=== PATIENT | male | born 1930 | race Caucasian/White ===

== ENCOUNTER 2016-03-30 10:01 | Inpatient (IN) | payer MEDICARE, BC ==
[~2016-03-30 10:01] MED LIST: AMIODARONE HCL100 MG PO; ARICEPT10 M1 PO; CHILDREN'S ASPI81 M1 PO; COUMADIN 22.5 MG/TAB PO; COUMADIN PO; COUMADIN5 M1 PO; ESCITALOPRAM10 MG PO; FLOMAX 0.40.4 MG/CAP PO; FUROSEMIDE PO; KEPPRA750 M1 PO; NAMENDA XR28 MG PO; NORCO 325 MG-51 TAB PO; PEG 335017 GM/Dose PO; POTASSIUM CHLO10 ME6 PO
[2016-03-30 15:52] VITALS: BP 110/59
[2016-03-30 18:46] VITALS: BP 117/65
[2016-03-31 06:32] VITALS: BP 154/83
[2016-03-31] MEDS ORDERED: LORTAB 5/3251 TAB PO (16:19)
[2016-03-31] MEDS ORDERED: VIAGRA100 M1 PO (16:22)
[2016-03-31] MEDS ORDERED: COUMADIN 3MG3 MG/TAB PO (16:23)
[2016-03-31] MEDS ORDERED: COUMADIN PO (16:24)
[2016-03-31 18:27] VITALS: BP 126/72
[2016-04-01 06:24] VITALS: BP 138/72
[2016-04-01 19:26] VITALS: BP 130/58
[2016-04-02 06:21] VITALS: BP 149/76
[2016-04-02 18:48] VITALS: BP 174/81
[2016-04-03 06:28] VITALS: BP 146/84
[2016-04-03 18:33] VITALS: BP 144/73
[2016-04-04 05:51] VITALS: BP 137/73
[2016-04-04 18:47] VITALS: BP 126/67
[2016-04-05 06:21] VITALS: BP 152/75
[2016-04-05 18:17] VITALS: BP 16/59
[2016-04-05 22:13] VITALS: BP 136/70
[2016-04-06 06:24] VITALS: BP 161/80
[2016-04-06 18:34] VITALS: BP 161/85
[2016-04-07 06:22] VITALS: BP 161/85
[2016-04-07 18:37] VITALS: BP 102/60
[2016-04-08 06:44] VITALS: BP 150/72
[2016-04-08 18:25] VITALS: BP 114/58
[2016-04-09 06:24] VITALS: BP 126/67
[2016-04-09 18:39] VITALS: BP 143/69
[2016-04-10 06:20] VITALS: BP 153/83
[2016-04-10 18:25] VITALS: BP 122/68
[2016-04-11 06:26] VITALS: BP 150/74
[2016-04-11 18:03] VITALS: BP 144/56
[2016-04-12 06:31] VITALS: BP 154/76
[2016-04-12 17:59] VITALS: BP 104/55
[2016-04-13 06:26] VITALS: BP 151/78
[2016-04-13 18:06] VITALS: BP 132/69
[2016-04-14 06:24] VITALS: BP 145/76
[2016-04-14 18:26] VITALS: BP 126/61
[2016-04-15 06:33] VITALS: BP 144/74
[2016-04-15 18:14] VITALS: BP 116/60
[2016-04-16 06:24] VITALS: BP 156/78
[2016-04-16 18:24] VITALS: BP 124/63
[2016-04-17 06:21] VITALS: BP 158/78
[2016-04-17 18:12] VITALS: BP 142/63
[2016-04-18 06:28] VITALS: BP 154/79
[2016-04-18 17:56] VITALS: BP 150/68
[2016-04-19 06:40] VITALS: BP 157/80
[2016-04-19 18:12] VITALS: BP 111/59
[2016-04-20 06:24] VITALS: BP 137/71
[2016-04-20 18:43] VITALS: BP 124/55
[2016-04-21 06:24] VITALS: BP 145/73
[2016-04-21 18:20] VITALS: BP 111/54
[2016-04-22 06:42] VITALS: BP 152/81
[2016-04-22 18:23] VITALS: BP 120/64
[2016-04-23 06:33] VITALS: BP 172/80
[2016-04-23 18:08] VITALS: BP 125/63
[2016-04-24 06:23] VITALS: BP 161/75
[2016-04-24 18:12] VITALS: BP 135/63
[2016-04-25 06:24] VITALS: BP 152/77
[2016-04-25 18:10] VITALS: BP 139/67
[2016-04-26 06:20] VITALS: BP 154/78
[2016-04-26 18:04] VITALS: BP 121/64
[2016-04-27 06:55] VITALS: BP 175/87
[2016-04-27 18:26] VITALS: BP 136/62
[2016-04-28 06:30] VITALS: BP 151/82
[2016-04-28 18:44] VITALS: BP 113/54
[2016-04-29 06:32] VITALS: BP 159/76
[2016-04-29 18:29] VITALS: BP 120/61
[2016-04-30 06:25] VITALS: BP 149/75
[2016-04-30 18:25] VITALS: BP 123/56
[2016-05-01 05:58] VITALS: BP 146/76
[2016-05-01 06:21] VITALS: BP 156/81
[2016-05-01 18:43] VITALS: BP 115/63
[2016-05-02 06:20] VITALS: BP 166/83
[2016-05-02 18:00] VITALS: BP 147/63
[2016-05-03 06:19] VITALS: BP 158/83
[2016-05-03 19:06] VITALS: BP 152/76
[2016-05-04 06:23] VITALS: BP 169/84
[2016-05-04 18:08] VITALS: BP 127/63
[2016-05-05 06:29] VITALS: BP 170/82
[2016-05-05 18:16] VITALS: BP 126/68
[2016-05-06 06:17] VITALS: BP 157/82
[2016-05-06 18:23] VITALS: BP 150/67
[2016-05-07 06:23] VITALS: BP 162/82
[2016-05-07 18:02] VITALS: BP 125/61
[2016-05-08 06:21] VITALS: BP 152/80
[2016-05-08 18:22] VITALS: BP 160/82
[2016-05-09 06:33] VITALS: BP 153/82
[2016-05-09 18:08] VITALS: BP 114/60
[2016-05-10 06:21] VITALS: BP 161/88
[2016-05-10 18:26] VITALS: BP 125/65
[2016-05-11 06:24] VITALS: BP 180/95
[2016-05-11 18:28] VITALS: BP 123/68
[2016-05-12 06:28] VITALS: BP 149/87
[2016-05-12 07:53] VITALS: BP 147/83
[2016-05-12 18:26] VITALS: BP 126/59
[2016-05-13 06:37] VITALS: BP 155/86
[2016-05-13 18:37] VITALS: BP 127/66
[2016-05-14 06:30] VITALS: BP 167/86
[2016-05-14 18:32] VITALS: BP 157/75
[2016-05-15 06:23] VITALS: BP 147/82
[2016-05-15 18:08] VITALS: BP 111/66
[2016-05-16 06:20] VITALS: BP 160/81
[2016-05-16 18:06] VITALS: BP 125/59
[2016-05-17 06:20] VITALS: BP 140/73
[2016-05-17] MEDS ORDERED: TYLENOL 500MG500 MG PO (14:06)
[2016-05-17] MEDS ORDERED: KEPPRA750 M1 PO (14:07)
[2016-05-17] MEDS ORDERED: LEXAPRO 10MG10 MG PO (14:07)
[2016-05-17] MEDS ORDERED: ATIVAN0.5 MG PO (14:08)
[2016-05-17] MEDS ORDERED: LEVOXYL0.075 MG PO (14:09)
[2016-05-17] MEDS ORDERED: COUMADIN 22.5 MG/TAB PO (14:11)
[2016-05-17] MEDS ORDERED: COUMADIN PO (14:12)
[2016-05-17 18:17] VITALS: BP 163/93
[2016-05-18 06:22] VITALS: BP 150/84
[2016-05-18 18:01] VITALS: BP 158/75
[2016-05-19 06:26] VITALS: BP 163/86
[2016-05-19 18:38] VITALS: BP 114/60
[2016-05-20 06:23] VITALS: BP 147/80
[2016-05-20 18:27] VITALS: BP 130/68
[2016-05-21 06:32] VITALS: BP 168/87
[2016-05-21 18:15] VITALS: BP 132/68
[2016-05-21 23:45] VITALS: BP 163/74
[2016-05-22 06:21] VITALS: BP 163/86
[2016-05-22 18:14] VITALS: BP 138/80
[2016-05-23 06:35] VITALS: BP 161/86
[2016-05-23 18:08] VITALS: BP 138/77
[2016-05-24 06:22] VITALS: BP 164/78
[2016-05-24 18:25] VITALS: BP 118/54
[2016-05-25 06:30] VITALS: BP 161/86
[2016-05-25 10:07] VITALS: BP 161/86
== END 2016-05-25 12:17 | DRG 560 ==
LOC: MED/SURG 10:01
PROVIDERS: ADMIT Physician Assistant
DX: S72.142D Displaced intertrochanteric fracture of left femur, subsequent encounter for closed fracture with routine healing (principal); F03.91 Unspecified dementia, unspecified severity, with behavioral disturbance; Z66 Do not resuscitate; Z96.643 Presence of artificial hip joint, bilateral; D64.9 Anemia, unspecified; E03.9 Hypothyroidism, unspecified; N28.9 Disorder of kidney and ureter, unspecified; I48.91 Unspecified atrial fibrillation; F32.9 Major depressive disorder, single episode, unspecified; R60.0 Localized edema; I25.10 Atherosclerotic heart disease of native coronary artery without angina pectoris; W19.XXXD Unspecified fall, subsequent encounter; I69.320 Aphasia following cerebral infarction; Z79.82 Long term (current) use of aspirin; Z79.01 Long term (current) use of anticoagulants; Z95.0 Presence of cardiac pacemaker; Z87.442 Personal history of urinary calculi
CPT/HCPCS: A6206; A6531

== ENCOUNTER → 2016-06-05 | Outpatient (CLI) | payer MEDICARE, BC ==
[~2016-06-05] MED LIST changes: +ASPIRIN 81M81 MG/TA2 PO; +ATIVAN0.5 MG PO; +COUMADIN 3MG3 MG/TAB PO; +COUMADIN 4MG4 MG/TAB PO; +LEVOXYL0.075 MG PO; +LEXAPRO 10MG10 MG PO; +LORTAB 5/3251 TAB PO; +MACROBID 100 M100 MG PO; +TYLENOL 500MG500 MG PO; +VIAGRA100 M1 PO
== END ==
LOC: LAB 10:35
DX: I48.2 Chronic atrial fibrillation (principal)

== ENCOUNTER 2016-06-15 18:22 | Emergency (ER) | payer MEDICARE, BC ==
[~2016-06-15 18:22] MED LIST changes: -ASPIRIN 81M81 MG/TA2 PO; -COUMADIN 4MG4 MG/TAB PO; -MACROBID 100 M100 MG PO
[2016-06-15] MEDS ORDERED: ASPIRIN 81M81 MG/TA2 PO (18:32)
[2016-06-15] MEDS ORDERED: COUMADIN 4MG4 MG/TAB PO ×2 (18:33)
[2016-06-15] MEDS ORDERED: COUMADIN 3MG3 MG/TAB PO (18:34)
[2016-06-15] MEDS ORDERED: MACROBID 100 M100 MG PO (22:27)
[2016-06-15 22:30] VITALS: BP 127/69
== END 2016-06-15 22:30 | disposition home or self-care (01) ==
LOC: ED 18:22
DX: N39.0 Urinary tract infection, site not specified (principal); E86.9 Volume depletion, unspecified; G40.909 Epilepsy, unspecified, not intractable, without status epilepticus
CPT/HCPCS: J0696; J7030

== ENCOUNTER 2017-06-26 14:46 | Emergency (ER) | payer MEDICARE, BC ==
[~2017-06-26] VITALS: Wt 92.9 kg
[~2017-06-26 14:46] MED LIST changes: +ASPIRIN 81M81 MG/TA2 PO; +COUMADIN 4MG4 MG/TAB PO; +MACROBID 100 M100 MG PO
[2017-06-26] MEDS ORDERED: COUMADIN 1MG1 MG/TAB PO (15:13)
[2017-06-26 15:43] LABS: HEMATOCRIT 34.1 % (42.0-52.0); HEMOGLOBIN 11.4 g/dL (13.5-18.0); MEAN CELL VOLUME 93 fl (78-100); MEAN CORPUSCULAR HEMOGLOBIN 31 pg (27-31); MEAN CORPUSCULAR HGB CONC 33 g/dL (33-37); MEAN PLATELET VOLUME 9.5 fl (7.4-10.4); PLATELET COUNT 192 K/mm3 (130-400); RED BLOOD COUNT 3.68 M/mm3 (4.20-5.60); RED CELL DISTRIBUTION WIDTH 13.7 % (11.5-14.5); WHITE BLOOD COUNT 6.9 K/mm3 (4.8-10.8)
[2017-06-26 15:57] LABS: ALBUMIN 3.1 g/dL (3.5-5.0); BUN/CREATININE RATIO 16.4 (6.0-26.0); CALCIUM 8.3 mg/dL (8.4-10.2); POTASSIUM 3.4 mmol/L (3.6-5.0); TOTAL BILIRUBIN 0.8 mg/dL (0.2-1.3); TOTAL PROTEIN 6.3 g/dL (6.3-8.2)
[2017-06-26 16:08] LABS: LYMPHOCYTE 20 % (20-51); MONOCYTE 8 % (3-10); NEUTROPHILS 61 % (42-75)
[2017-06-26 16:14] LABS: PROTHROMBIN TIME 39.4 SECONDS (9.0-12.0)
[2017-06-26] MEDS ORDERED: BACTRIM DS TAB1 EACH PO (19:17)
[2017-06-26 20:20] VITALS: BP 124/69
== END 2017-06-26 20:20 | disposition home or self-care (01) ==
LOC: ED 14:46
PROVIDERS: Physician Assistant
DX: L08.9 Local infection of the skin and subcutaneous tissue, unspecified (principal); S61.412A Laceration without foreign body of left hand, initial encounter; Z91.81 History of falling; I25.10 Atherosclerotic heart disease of native coronary artery without angina pectoris; W19.XXXA Unspecified fall, initial encounter; Y92.009 Unspecified place in unspecified non-institutional (private) residence as the place of occurrence of the external cause; F03.90 Unspecified dementia, unspecified severity, without behavioral disturbance, psychotic disturbance, mood disturbance, and anxiety; G40.909 Epilepsy, unspecified, not intractable, without status epilepticus; I48.91 Unspecified atrial fibrillation; Z79.01 Long term (current) use of anticoagulants; Z86.73 Personal history of transient ischemic attack (TIA), and cerebral infarction without residual deficits; D64.9 Anemia, unspecified; Z79.82 Long term (current) use of aspirin